=== PATIENT | female | born 1985 | race Hispanic/Latino ===

== ENCOUNTER 2021-04-01 19:56 | Inpatient (IN) | payer OTHER, MEDICARE ==
[~2021-04-01] VITALS: Ht 152.4 cm; Wt 72.2 kg
[2021-04-01] MEDS ORDERED: MORPHINE 4 MG SYG IV ONE (21:00)
[2021-04-01 21:37] LABS: APPEARANCE,URINE Cloudy (CLEAR); BASOPHILS % (AUTO) 0.4 % (0.0-5.0); BILIRUBIN,URINE Negative (NEGATIVE); COLOR,URINE Yellow (YELLOW); EOSINOPHILS % (AUTO) 1.3 % (0.0-8.0); GLUCOSE, URINE (UA) Negative (NEGATIVE); HEMATOCRIT 38.4 % (36-48); KETONES,URINE Negative (NEGATIVE); LEUKOCYTE ESTERASE ,URINE Small (NEGATIVE); LYMPHOCYTES % (AUTO) 29.3 % (21.0-51.0); MEAN CORPUSCULAR HEMOGLOBIN 30.9 pg (27.0-33.0); MEAN CORPUSCULAR HGB CONC 33.3 g/dL (32.0-36.0); MEAN CORPUSCULAR VOLUME 92.8 fL (79-99); MONOCYTES % (AUTO) 7.7 % (3.0-13.0); NITRATE,URINE Negative (NEGATIVE); OCCULT BLOOD,URINE Negative (NEGATIVE); PLATELET COUNT (AUTO) 280 K/uL (130-400); PROTEIN,URINE Negative (NEGATIVE); RED BLOOD CELL COUNT(AUTO) 4.14 MIL/uL (4.00-5.50); RED CELL DISTRIBUTION WIDTH 12.4 % (11.0-15.5); WHITE BLOOD COUNT (AUTO) 12.4 K/uL (4.8-10.8)
[2021-04-01 21:39] LABS: CREATININE 0.7 mg/dL (0.5-1.5); POTASSIUM 3.1 mmol/L (3.5-5.1)
[2021-04-01 21:42] LABS: HCG,QUAL RESULT NEGATIVE (NEGATIVE)
[2021-04-01 21:43] LABS: ALBUMIN 3.5 g/dL (3.5-5.0); BILIRUBIN,TOTAL 0.3 mg/dL (0.2-1.0); CRP QUANTITATIVE 16.4 mg/L (0.00-9.0)
[2021-04-01 21:45] LABS: BACTERIA,URINE Few /HPF (None Seen); MUCUS,URINE Few LPF (None Seen); RBC,URINE 0-1 /HPF (0-1); SQUAMOUS EPITHELIAL CELL,UR Moderate /HPF (0-2)
[2021-04-01] MEDS ORDERED: LEVOFLOXACIN 500 MG/D5W 100 ML 100 ML IV ONE (22:00)
[2021-04-01] MEDS ORDERED: METRONIDAZOLE 500MG/100ML BAG 100 ML IVPB ONE (22:00)
[2021-04-01] MEDS ORDERED: IOHEXOL-350 75 ML VIAL IV ONE (22:09)
[2021-04-02] MEDS ORDERED: LEVOFLOXACIN 500 MG/D5W 100 ML 100 ML ONE (00:01)
[2021-04-02] MEDS ORDERED: METRONIDAZOLE 500MG/100ML BAG 100 ML ONE (00:01)
[2021-04-02] MEDS ORDERED: KETOROLAC 30MG VIAL (30MG/ML) ONE (00:05)
[2021-04-02] MEDS: 0.9%NACL 1000ML 1,000 ML IV SCH ×2 (00:24→00:37)
[2021-04-02] MEDS ORDERED: KETOROLAC 30MG VIAL (30MG/ML) IV ONE (00:30)
[2021-04-02] MEDS ORDERED: 0.9%NACL 1000ML 1,000 ML IV SCH (00:30)
[2021-04-02] MEDS ORDERED: HYDROCODONE/ACETAMINOPHEN 5/325 MG TAB PO ONE (02:00)
[2021-04-02] MEDS ORDERED: ACETAMINOPHEN 325 MG TAB PO PRN (03:30)
[2021-04-02] MEDS ORDERED: MAG/ALUM/SIMETH 30 ML UDCUP PO PRN (03:30)
[2021-04-02] MEDS ORDERED: DIPHENHYDRAMINE HCL 25 MG CAPSULE PO PRN (03:30)
[2021-04-02] MEDS ORDERED: NITROGLYCERIN 0.4 MG SL TAB SL PRN (03:30)
[2021-04-02] MEDS ORDERED: LIDOCAINE HCL-MPF 1% 2ML VIAL IV PRN (03:30)
[2021-04-02] MEDS ORDERED: LACTULOSE 20 GM/30 ML UDCUP PO PRN (03:30)
[2021-04-02] MEDS ORDERED: ONDANSETRON 4MG INJ IV PRN (03:30)
[2021-04-02] MEDS: METRONIDAZOLE 500MG/100ML BAG 100 ML IV SCH ×3 (03:30→21:11)
[2021-04-02] MEDS ORDERED: GUAIFENESIN-DM 200/20 MG 10 ML PO PRN (03:30)
[2021-04-02] MEDS ORDERED: POTASSIUM CHLORIDE 10% ELIXIR 20 MEQ/15 ML UDCUP PO PRN (03:30)
[2021-04-02] MEDS ORDERED: POTASSIUM CHLORIDE 20MEQ/100ML 100 ML IV PRN (03:30)
[2021-04-02] MEDS: CLINDAMYCIN IVPB 600MG/50ML 50 ML IV SCH ×3 (05:07→21:11)
[2021-04-02] MEDS: MORPHINE 2 MG SYG IV PRN ×3 (05:08→21:11)
[2021-04-02 08:15] VITALS: BP 99/49
[2021-04-02] MEDS: FAMOTIDINE 20MG VIAL IV SCH ×2 (08:30→21:11)
[2021-04-02] MEDS: ENOXAPARIN SODIUM 40 MG/0.4 ML SYRINGE SQ SCH (08:33)
[2021-04-02] MEDS: KCL 20 MEQ ERTAB PO PRN ×3 (08:42→17:30)
[2021-04-02] MEDS: MORPHINE 4 MG SYG IV PRN ×2 (09:15→13:48)
[2021-04-02 11:23] VITALS: BP 104/54
[2021-04-02] MEDS: HYDROCODONE/ACETAMINOPHEN 5/325 MG TAB PO PRN ×2 (11:48→23:37)
[2021-04-02 12:17] VITALS: BP 101/66
[2021-04-02 23:10] VITALS: BP 120/71
[2021-04-02] MEDS ORDERED: CITA40TA14 PO (23:52)
[2021-04-02] MEDS ORDERED: ICOS1CAP PO (23:52)
[2021-04-02] MEDS ORDERED: BUDE10.2 IH (23:52)
[2021-04-02] MEDS ORDERED: PRAV80TA21 PO (23:52)
[2021-04-02] MEDS ORDERED: ALPR0.25 PO (23:52)
[2021-04-02] MEDS ORDERED: HYDR-4064 PO (23:52)
[2021-04-02] MEDS ORDERED: ALBU8.5H8 IH (23:52)
[2021-04-03] VITALS (24 sets, daily range): BP systolic 94–128; BP diastolic 55–85
[2021-04-03] MEDS: MORPHINE 2 MG SYG IV PRN ×4 (01:50→20:32)
[2021-04-03] MEDS: CLINDAMYCIN IVPB 600MG/50ML 50 ML IV SCH ×3 (02:54→20:31)
[2021-04-03] MEDS: METRONIDAZOLE 500MG/100ML BAG 100 ML IV SCH ×3 (02:54→21:37)
[2021-04-03 04:57] LABS: BASOPHILS % (AUTO) 0.2 % (0.0-5.0); EOSINOPHILS % (AUTO) 1.1 % (0.0-8.0); HEMATOCRIT 35.3 % (36-48); LYMPHOCYTES % (AUTO) 24.4 % (21.0-51.0); MEAN CORPUSCULAR HGB CONC 33.1 g/dL (32.0-36.0); MEAN CORPUSCULAR VOLUME 93.4 fL (79-99); MONOCYTES % (AUTO) 8.5 % (3.0-13.0); NEUTROPHILS % (AUTO) 65.4 % (40.0-77.0); PLATELET COUNT (AUTO) 245 K/uL (130-400); RED BLOOD CELL COUNT(AUTO) 3.78 MIL/uL (4.00-5.50); RED CELL DISTRIBUTION WIDTH 12.2 % (11.0-15.5); WHITE BLOOD COUNT (AUTO) 12.8 K/uL (4.8-10.8)
[2021-04-03 05:16] LABS: CREATININE 0.5 mg/dL (0.5-1.5); POTASSIUM 3.5 mmol/L (3.5-5.1)
[2021-04-03] MEDS: ENOXAPARIN SODIUM 40 MG/0.4 ML SYRINGE SQ SCH (08:42)
[2021-04-03] MEDS: FAMOTIDINE 20MG VIAL IV SCH ×2 (08:42→20:31)
[2021-04-03] MEDS: MORPHINE 4 MG SYG IV PRN ×2 (12:04→17:44)
[2021-04-03] MEDS ORDERED: TOPI100T37 PO (13:59)
[2021-04-03] MEDS ORDERED: MIDAZOLAM HCL 1 MG/ML 2ML VIAL ONE (14:28)
[2021-04-03] MEDS ORDERED: PROPOFOL 10 MG/ML 20ML VIAL IV ONE (14:30)
[2021-04-03] MEDS ORDERED: LIDOCAINE PF 100MG/5ML (2%) SYRINGE 5ML ONE (14:30)
[2021-04-03] MEDS ORDERED: SUCCINYLCHOLINE CHLORIDE 20 MG/ML 10 ML VIAL ONE (14:31)
[2021-04-03] MEDS ORDERED: FENTANYL CITRATE PF 50 MCG/1 ML 2ML VIAL ONE (14:31)
[2021-04-03] MEDS ORDERED: ONDANSETRON 4MG INJ ONE (14:40)
[2021-04-03] MEDS ORDERED: BUPIVACAINE/PF 0.25% 30ML VIAL IJ ONE (15:18)
[2021-04-03] MEDS ORDERED: ALBUTEROL 0.083% 2.5 MG/3 ML INH IH PRN (15:30)
[2021-04-03] MEDS ORDERED: MEPERIDINE-PF 25 MG/ML SYG ONE (15:47)
[2021-04-03] MEDS: TOPIRAMATE 100 MG TAB PO SCH ×2 (17:55→20:30)
[2021-04-03] MEDS: 0.9%NACL 1000ML 1,000 ML IV SCH (17:56)
[2021-04-03] MEDS: BUDESONIDE 0.5 MG/2 ML INH IH SCH (20:24)
[2021-04-03] MEDS ORDERED: KCL 20 MEQ ERTAB PO ONE (20:30)
[2021-04-03] MEDS: ALPRAZOLAM 0.25 MG TABLET PO SCH (20:30)
[2021-04-03] MEDS: ICOSAPENT ETHYL 2 GM PO SCH (21:00)
[2021-04-03] MEDS: HYDROCODONE/ACETAMINOPHEN 5/325 MG TAB PO PRN (22:46)
[2021-04-04] MEDS: ALBUTEROL 0.083% 2.5 MG/3 ML INH IH SCH ×4 (00:24→18:48)
[2021-04-04 03:20] VITALS: BP 97/60
[2021-04-04] MEDS: MORPHINE 2 MG SYG IV PRN ×5 (03:25→21:57)
[2021-04-04] MEDS: METRONIDAZOLE 500MG/100ML BAG 100 ML IV SCH ×3 (04:03→21:56)
[2021-04-04] MEDS: CLINDAMYCIN IVPB 600MG/50ML 50 ML IV SCH ×2 (04:03→12:07)
[2021-04-04] MEDS: HYDROCODONE/ACETAMINOPHEN 5/325 MG TAB PO PRN ×2 (05:00→23:35)
[2021-04-04 05:15] LABS: HEMATOCRIT 34.4 % (36-48); MEAN CORPUSCULAR HEMOGLOBIN 31.5 pg (27.0-33.0); MEAN CORPUSCULAR HGB CONC 33.7 g/dL (32.0-36.0); MEAN CORPUSCULAR VOLUME 93.5 fL (79-99); RED BLOOD CELL COUNT(AUTO) 3.68 MIL/uL (4.00-5.50); RED CELL DISTRIBUTION WIDTH 12.4 % (11.0-15.5); WHITE BLOOD COUNT (AUTO) 11.6 K/uL (4.8-10.8)
[2021-04-04 05:32] LABS: CREATININE 0.6 mg/dL (0.5-1.5); POTASSIUM 3.7 mmol/L (3.5-5.1)
[2021-04-04] MEDS: BUDESONIDE 0.5 MG/2 ML INH IH SCH ×2 (06:17→18:48)
[2021-04-04 07:12] VITALS: BP 93/57
[2021-04-04] MEDS: ENOXAPARIN SODIUM 40 MG/0.4 ML SYRINGE SQ SCH (08:56)
[2021-04-04] MEDS: CITALOPRAM 20 MG TABLET PO SCH (08:56)
[2021-04-04] MEDS: FAMOTIDINE 20MG VIAL IV SCH ×2 (08:56→21:56)
[2021-04-04] MEDS: ALPRAZOLAM 0.25 MG TABLET PO SCH ×3 (08:56→20:36)
[2021-04-04] MEDS: TOPIRAMATE 100 MG TAB PO SCH ×2 (08:56→20:36)
[2021-04-04] MEDS: ATORVASTATIN 20 MG TABLET PO SCH (08:56)
[2021-04-04] MEDS: ICOSAPENT ETHYL 2 GM PO SCH ×2 (09:00→20:42)
[2021-04-04 10:46] VITALS: BP 90/52
[2021-04-04] MEDS: KETOROLAC 15MG/ML VIAL (15MG/ML) IV PRN (10:50)
[2021-04-04] MEDS ORDERED: HYDROMORPHONE 1 MG INJ ONE (11:56)
[2021-04-04] MEDS ORDERED: HYDROMORPHONE 1 MG INJ IVP SCH (12:00)
[2021-04-04] MEDS: 0.9%NACL 1000ML 1,000 ML IV SCH (13:31)
[2021-04-04] MEDS ORDERED: VANCOMYCIN PROTOCOL PER PHARMACY IV SCH (14:30)
[2021-04-04 15:02] VITALS: BP 97/57
[2021-04-04 18:58] VITALS: BP 93/51
[2021-04-04] MEDS: VANCOMYCIN KIT 250 ML IV SCH (19:24)
[2021-04-04 23:25] VITALS: BP 99/66
[2021-04-05] MEDS: ALBUTEROL 0.083% 2.5 MG/3 ML INH IH SCH ×5 (00:07→18:48)
[2021-04-05] MEDS: 0.9%NACL 1000ML 1,000 ML IV SCH (03:22)
[2021-04-05] MEDS: MORPHINE 2 MG SYG IV PRN ×3 (03:23→16:45)
[2021-04-05 03:31] VITALS: BP 113/52
[2021-04-05] MEDS: METRONIDAZOLE 500MG/100ML BAG 100 ML IV SCH ×3 (05:02→20:47)
[2021-04-05 05:41] LABS: BASOPHILS % (AUTO) 0.4 % (0.0-5.0); EOSINOPHILS % (AUTO) 2.5 % (0.0-8.0); LYMPHOCYTES % (AUTO) 34.8 % (21.0-51.0); MEAN CORPUSCULAR HEMOGLOBIN 31.2 pg (27.0-33.0); MEAN CORPUSCULAR HGB CONC 32.7 g/dL (32.0-36.0); MEAN CORPUSCULAR VOLUME 95.4 fL (79-99); MONOCYTES % (AUTO) 8.9 % (3.0-13.0); NEUTROPHILS % (AUTO) 53.2 % (40.0-77.0); PLATELET COUNT (AUTO) 238 K/uL (130-400); RED BLOOD CELL COUNT(AUTO) 3.46 MIL/uL (4.00-5.50); RED CELL DISTRIBUTION WIDTH 12.5 % (11.0-15.5); WHITE BLOOD COUNT (AUTO) 8.2 K/uL (4.8-10.8)
[2021-04-05] MEDS: BUDESONIDE 0.5 MG/2 ML INH IH SCH ×2 (06:01→18:56)
[2021-04-05] MEDS: HYDROCODONE/ACETAMINOPHEN 5/325 MG TAB PO PRN ×2 (06:25→13:06)
[2021-04-05 07:37] VITALS: BP 100/55
[2021-04-05] MEDS: ICOSAPENT ETHYL 2 GM PO SCH ×2 (09:00→20:55)
[2021-04-05] MEDS: LEVOFLOXACIN 750 MG/D5W 150 ML 150 ML IV SCH (09:40)
[2021-04-05] MEDS: TOPIRAMATE 100 MG TAB PO SCH ×2 (09:53→20:47)
[2021-04-05] MEDS: ATORVASTATIN 20 MG TABLET PO SCH (09:54)
[2021-04-05] MEDS: CITALOPRAM 20 MG TABLET PO SCH (09:54)
[2021-04-05] MEDS: FAMOTIDINE 20MG VIAL IV SCH ×2 (09:54→20:49)
[2021-04-05] MEDS: ENOXAPARIN SODIUM 40 MG/0.4 ML SYRINGE SQ SCH (09:58)
[2021-04-05] MEDS: ALPRAZOLAM 0.25 MG TABLET PO SCH ×3 (10:01→20:47)
[2021-04-05] MEDS: KETOROLAC 15MG/ML VIAL (15MG/ML) IV PRN ×2 (10:02→22:16)
[2021-04-05] MEDS: VANCOMYCIN KIT 250 ML IV SCH ×2 (10:29→22:09)
[2021-04-05 10:46] VITALS: BP 99/59
[2021-04-05] MEDS ORDERED: POLYETHYLENE GLYCOL 3350 17 GM POWD.PACK PO ONE (11:30)
[2021-04-05] MEDS: DOCUSATE SODIUM 100 MG CAP PO SCH ×2 (11:48→20:47)
[2021-04-05] MEDS: POLYETHYLENE GLYCOL 3350 17 GM POWD.PACK PO SCH (11:48)
[2021-04-05 16:22] VITALS: BP 114/64
[2021-04-05 20:29] VITALS: BP 108/63
[2021-04-05] MEDS ORDERED: 0.9% NACL 250ML 250 ML ONE (20:35)
[2021-04-05 23:25] VITALS: BP 106/64
[2021-04-06] MEDS: MORPHINE 2 MG SYG IV PRN ×3 (00:15→16:47)
[2021-04-06] MEDS: ALBUTEROL 0.083% 2.5 MG/3 ML INH IH SCH ×4 (00:25→18:59)
[2021-04-06 03:55] VITALS: BP 110/61
[2021-04-06] MEDS: METRONIDAZOLE 500MG/100ML BAG 100 ML IV SCH ×2 (04:01→11:38)
[2021-04-06] MEDS: BUDESONIDE 0.5 MG/2 ML INH IH SCH ×2 (06:49→19:05)
[2021-04-06 07:25] LABS: BASOPHILS % (AUTO) 0.6 % (0.0-5.0); EOSINOPHILS % (AUTO) 4.3 % (0.0-8.0); HEMATOCRIT 35.4 % (36-48); LYMPHOCYTES % (AUTO) 35.2 % (21.0-51.0); MEAN CORPUSCULAR HEMOGLOBIN 31.2 pg (27.0-33.0); MEAN CORPUSCULAR HGB CONC 33.1 g/dL (32.0-36.0); MEAN CORPUSCULAR VOLUME 94.4 fL (79-99); NEUTROPHILS % (AUTO) 49.5 % (40.0-77.0); PLATELET COUNT (AUTO) 260 K/uL (130-400); RED BLOOD CELL COUNT(AUTO) 3.75 MIL/uL (4.00-5.50); RED CELL DISTRIBUTION WIDTH 12.5 % (11.0-15.5); WHITE BLOOD COUNT (AUTO) 7.3 K/uL (4.8-10.8)
[2021-04-06 07:49] LABS: ALBUMIN 2.8 g/dL (3.5-5.0); BILIRUBIN,TOTAL 0.2 mg/dL (0.2-1.0); CREATININE 0.6 mg/dL (0.5-1.5); POTASSIUM 3.6 mmol/L (3.5-5.1); TOTAL PROTEIN, SERUM 6.3 g/dL (6.0-8.3)
[2021-04-06 08:00] VITALS: BP 109/62
[2021-04-06] MEDS ORDERED: 0.9% NACL 250ML 250 ML ONE (08:17)
[2021-04-06] MEDS: ICOSAPENT ETHYL 2 GM PO SCH (09:00)
[2021-04-06] MEDS: LEVOFLOXACIN 750 MG/D5W 150 ML 150 ML IV SCH (09:15)
[2021-04-06] MEDS: FAMOTIDINE 20MG VIAL IV SCH (09:16)
[2021-04-06] MEDS: ATORVASTATIN 20 MG TABLET PO SCH (09:17)
[2021-04-06] MEDS: DOCUSATE SODIUM 100 MG CAP PO SCH (09:17)
[2021-04-06] MEDS: POLYETHYLENE GLYCOL 3350 17 GM POWD.PACK PO SCH (09:17)
[2021-04-06] MEDS: ALPRAZOLAM 0.25 MG TABLET PO SCH ×2 (09:17→13:58)
[2021-04-06] MEDS: TOPIRAMATE 100 MG TAB PO SCH (09:17)
[2021-04-06] MEDS: CITALOPRAM 20 MG TABLET PO SCH (09:17)
[2021-04-06] MEDS: VANCOMYCIN KIT 250 ML IV SCH (09:17)
[2021-04-06] MEDS: ENOXAPARIN SODIUM 40 MG/0.4 ML SYRINGE SQ SCH (09:18)
[2021-04-06 11:39] VITALS: BP 108/61
[2021-04-06] MEDS: HYDROCODONE/ACETAMINOPHEN 5/325 MG TAB PO PRN (11:39)
[2021-04-06] MEDS: KETOROLAC 15MG/ML VIAL (15MG/ML) IV PRN (13:58)
[2021-04-06 16:58] VITALS: BP 106/65
[2021-04-06 19:30] VITALS: BP 96/59
[2021-04-06] MEDS ORDERED: METR500T PO (20:18)
[2021-04-06] MEDS ORDERED: LEVO750T46 PO (20:18)
[2021-04-06] MEDS ORDERED: KETO10 PO (20:18)
[2021-04-06] MEDS ORDERED: HYDR-4060 PO (20:18)
[2021-04-06] MEDS ORDERED: PANT40TA54 PO (20:18)
== END 2021-04-06 22:05 | disposition home or self-care (01) | DRG 357 ==
LOC: EDH 19:56 → EDHIP 04-02 03:13 → OBSVTOIN 04-02 03:13 → 3CH 04-02 22:58
PROVIDERS: ADMIT Hospitalist; ATTEND Hospitalist
PROC: 0JB90ZZ Excision of Buttock Subcutaneous Tissue and Fascia, Open Approach (ICD-10-PCS; principal; 2021-04-03 14:28)
DX: K61.1 Rectal abscess (principal); N39.0 Urinary tract infection, site not specified; L03.317 Cellulitis of buttock; E87.6 Hypokalemia; E66.9 Obesity, unspecified; Z20.822 Contact with and (suspected) exposure to COVID-19; E78.00 Pure hypercholesterolemia, unspecified; G40.909 Epilepsy, unspecified, not intractable, without status epilepticus; G89.29 Other chronic pain; L73.2 Hidradenitis suppurativa; B96.20 Unspecified Escherichia coli [E. coli] as the cause of diseases classified elsewhere; B95.1 Streptococcus, group B, as the cause of diseases classified elsewhere; F41.9 Anxiety disorder, unspecified; Z88.0 Allergy status to penicillin; Z91.040 Latex allergy status; Z90.49 Acquired absence of other specified parts of digestive tract; Z68.31 Body mass index [BMI] 31.0-31.9, adult
CPT/HCPCS: 36415; 72193; 80048; 80053; 80202; 81001; 81025; 82550; 83605; 83735; 84145; 85025; 85027; 86140; 87040; 87070; 87076; 87077; 87088; 87186; 87205; 87635; 94640; 94664; C9803; G0378; J0330; J1170; J1650; J1885; J1956; J2001; J2175; J2250; J2270; J2405; J2704; J3010; J3370; J3490; J7030; J7050; Q9967